=== PATIENT | male | born 1980 ===

== ENCOUNTER 2017-01-08 10:40 | Emergency (ER) | payer OTHER ==
[2017-01-08 10:40] VITALS: BMI 27.4
[2017-01-08 10:47] VITALS: BP 136/86; PULSE 87; RESP 18; TEMP 99; O2SAT 96
--- NOTE | 2017-01-08 11:04 | ED PDOC ---
HPI:Nausea, Vomiting, Diarrhea Time Seen by Provider: 01/08/17 10:57 Chief Complaint (Nursing): GI Problem History Per: Patient (Diarrhea x 2 days. Denies abd pain, vomiting or fever. Denies blood in stool. No recent travel.) Onset/Duration Of Symptoms: Days (2) Current Symptoms Are (Timing): Still Present Severity: Mild Pain Scale Rating Of: 0 Associated Symptoms: Diarrhea. denies: Fever, Nausea, Vomiting Past Medical History Vital Signs: Last Vital Signs Temp 99.0 F 01/08/17 10:46 Pulse 87 01/08/17 10:46 Resp 18 01/08/17 10:46 BP 136/86 01/08/17 10:46 Pulse Ox 96 01/08/17 10:46 - Medical History PMH: Anxiety - Family History Family History: States: Unknown Family Hx - Home Medications Home Medications: Ambulatory Orders Medication Instructions Recorded Ibuprofen [Motrin] 600 mg PO Q6H PRN #20 tab 09/25/16 Amoxicillin 875 mg PO BID #20 tab 09/26/16 Ofloxacin Otic 0.3% [Floxin 0.3% 10 drop .ROUTE DAILY #1 bottle 09/26/16 Otic Soln] Atropine/Diphenoxylate [Lonox 1 tab PO Q8 #10 tab 01/08/17 0.025 MG-2.5 MG] - Allergies Allergies/Adverse Reactions: Allergies Allergy/AdvReac Type Severity Reaction Status Date / Time No Known Allergies Allergy Verified 02/18/16 08:56 Review of Systems ROS Statement: Except As Marked, All Systems Reviewed And Found Negative Constitutional: Negative for: Fever Gastrointestinal: Positive for: Diarrhea. Negative for: Nausea, Vomiting, Abdominal Pain, Melena, Hematochezia Physical Exam - Reviewed Nursing Documentation Reviewed: Yes Vital Signs Reviewed: Yes - Physical Exam Appears: Positive for: Non-toxic, No Acute Distress Head Exam: Positive for: ATRAUMATIC, NORMAL INSPECTION, NORMOCEPHALIC Skin: Positive for: Normal Color, Warm, DRY Eye Exam: Positive for: EOMI, Normal appearance, PERRL ENT: Positive for: Normal ENT Inspection Neck: Positive for: Normal, Painless ROM Cardiovascular/Chest: Positive for: Regular Rate, Rhythm Respiratory: Positive for: CNT, Normal Breath Sounds Gastrointestinal/Abdominal: Positive for: Normal Exam, Bowel Sounds, Soft Back: Positive for: Normal Inspection Extremity: Positive for: Normal ROM Neurologic/Psych: Positive for: Alert, Oriented - Laboratory Results Result Diagrams: 01/08/17 11:45 01/08/17 11:45 - ECG O2 Sat by Pulse Oximetry: 96 Disposition - Clinical Impression Clinical Impression: Gastroenteritis - Patient ED Disposition Is Patient to be Admitted: No Counseled Patient/Family Regarding: Studies Performed, Diagnosis, Need For Followup, Rx Given - Disposition Referrals: [facility] [Outside] Disposition: Routine/Home Disposition Time: 12:59 Condition: FAIR Prescriptions: Atropine/Diphenoxylate [Lonox 0.025 MG-2.5 MG] 1 tab PO Q8 #10 tab Instructions: Gastroenteritis (ED) Print Language: UKRAINIAN
[2017-01-08] MEDS: Sodium Chloride 0.9% 1,000 ML IV STA (12:11)
[2017-01-08 12:19] LABS: BASO # 0.1 K/uL (0.0-0.2); BASO % 0.8 % (0.0-2.0); EOS # 0.1 K/uL (0.0-0.7); EOS % 0.5 % (0.0-4.0); HEMATOCRIT 50.9 % (35.0-51.0); LYMPH # 1.7 K/uL (1.0-4.3); LYMPH % 17.8 % (20.0-40.0); MEAN CELL VOLUME 91.7 fl (80.0-94.0); MEAN CORPUSCULAR HEMOGLOBIN 31.6 pg (27.0-31.0); MEAN CORPUSCULAR HGB CONC 34.5 g/dL (33.0-37.0); MEAN PLATELET VOLUME 8.1 fl (7.2-11.7); MONO # 0.7 K/uL (0.0-0.8); MONO % 7.5 % (0.0-10.0); NEUT % 73.4 % (50.0-75.0); NRBC % 0.2 % (0.0-0.0); RED CELL DISTRIBUTION WIDTH 13.1 % (11.5-14.5); WHITE BLOOD COUNT 9.5 K/uL (4.8-10.8)
[2017-01-08 12:32] LABS: ALB/GLOB RATIO 1.4 (1.0-2.1); ALKALINE PHOSPHATASE 56 U/L (38-126); ALT/SGPT 217 U/L (21-72); AST/SGOT 629 U/L (17-59); BILIRUBIN,TOTAL 1.6 mg/dl (0.2-1.3); BLOOD UREA NITROGEN 21 mg/dl (9-20); CALCIUM 10.3 mg/dL (8.4-10.2); CARBON DIOXIDE 24 mmol/L (22-30); CHLORIDE 103 mmol/L (98-107); GFR AFRICAN-AMERICAN > 60; GLUCOSE,RANDOM 95 mg/dL (75-110); SODIUM 140 mmol/l (132-148); TOTAL PROTEIN 8.8 G/DL (6.3-8.2)
[2017-01-08 12:33] LABS: POTASSIUM 5.7 MMOL/L (3.6-5.0)
== END 2017-01-08 13:39 | disposition home or self-care (01) ==
LOC: H.ER 10:40
DX: K52.9 Noninfective gastroenteritis and colitis, unspecified (principal); R19.7 Diarrhea, unspecified

== ENCOUNTER 2017-01-12 16:27 | Observation (INO) | payer OTHER, SELFPAY ==
[2017-01-12 16:27] VITALS: BMI 27.4
[2017-01-12] MEDS ORDERED: Sodium Chloride 0.9% 1,000 ML IV STA (16:54)
--- NOTE | 2017-01-12 17:25 | ED PDOC ---
HPI: Abdomen Time Seen by Provider: 01/12/17 16:51 Chief Complaint (Nursing): Abdominal Pain Chief Complaint (Provider): Abd pain History Per: Patient History/Exam Limitations: no limitations Onset/Duration Of Symptoms: Days (1 week) Additional Complaint(s): Pt. with abd pain epigastric week. Was here and got meds for it few days ago. Taking it which helps. Ran out of the meds last night. Pt. also noted red blood in stool yesterday. No lower abd pain. No weakness, headaches, dizziness , fever, chest pain, back pain, nausea, vomit, diarrhea. Had same pain in the past. Past Medical History Reviewed: Nursing Documentation, Vital Signs Vital Signs: Last Vital Signs Temp 97.8 F 01/12/17 16:38 Pulse 84 01/12/17 16:38 Resp 20 01/12/17 16:38 BP 124/65 01/12/17 16:38 Pulse Ox 98 01/12/17 17:28 - Medical History PMH: Anxiety Other PMH: gastritis - Surgical History Surgical History: No Surg Hx - Family History Family History: States: Unknown Family Hx - Social History Current smoker - smoking cessation education provided: No Alcohol: None Drugs: Denies - Home Medications Home Medications: Ambulatory Orders Medication Instructions Recorded Ibuprofen [Motrin] 600 mg PO Q6H PRN #20 tab 09/25/16 Amoxicillin 875 mg PO BID #20 tab 09/26/16 Ofloxacin Otic 0.3% [Floxin 0.3% 10 drop .ROUTE DAILY #1 bottle 09/26/16 Otic Soln] Atropine/Diphenoxylate [Lonox 1 tab PO Q8 #10 tab 01/08/17 0.025 MG-2.5 MG] - Allergies Allergies/Adverse Reactions: Allergies Allergy/AdvReac Type Severity Reaction Status Date / Time No Known Allergies Allergy Verified 02/18/16 08:56 Review of Systems ROS Statement: Except As Marked, All Systems Reviewed And Found Negative Gastrointestinal: Positive for: Abdominal Pain, Hematochezia Physical Exam - Reviewed Nursing Documentation Reviewed: Yes Vital Signs Reviewed: Yes - Physical Exam Appears: Positive for: Non-toxic, No Acute Distress Head Exam: Positive for: ATRAUMATIC, NORMAL INSPECTION, NORMOCEPHALIC Skin: Positive for: Normal Color, Warm, DRY Eye Exam: Positive for: EOMI, Normal appearance, PERRL ENT: Positive for: Normal ENT Inspection Neck: Positive for: Normal, Painless ROM Cardiovascular/Chest: Positive for: Regular Rate, Rhythm Respiratory: Positive for: CNT, Normal Breath Sounds Gastrointestinal/Abdominal: Positive for: Bowel Sounds, Soft, Tenderness ( epigastric) Back: Positive for: Normal Inspection. Negative for: L CVA Tenderness, R CVA Tenderness Rectal: Positive for: Rectal Tone Is: (intact), Other (stool brown) Extremity: Positive for: Normal ROM. Negative for: Tenderness, Pedal Edema Neurologic/Psych: Positive for: Alert, Oriented - Laboratory Results Result Diagrams: 01/12/17 17:31 01/12/17 17:31 Interpretation Of Abn Labs: bun 28 - ECG O2 Sat by Pulse Oximetry: 98 Pulse Ox Interpretation: Normal - CT Scan/US ct Other Rad Studies (CT/US): Read By Radiologist Other Rad Interpretation: no acute - Progress ED Course And Treament: 954: Stable. AAOx3. Pain free. Spoke with GI fellow for Dr. Dave. Wants pt. to be obs and no further meds at this time. No protonix IV. Will monitor. BUN has been increasing. Spoke with Dr. Levine. Will obs. ED OBSERVATION Date of observation admission: 01/12/17 Time of observation admission: 17:28 - Observation admission statement Patient is being placed in observation because:: abd pain - Goals of Observation Goals of observation are:: eval for pain Disposition - Clinical Impression Clinical Impression: GI bleed - Patient ED Disposition Is Patient to be Admitted: Yes Counseled Patient/Family Regarding: Studies Performed, Diagnosis - Disposition Disposition Time: 22:02 Condition: FAIR - Pt Status Changed To: Hospital Disposition Of: Observation - POA Present On Arrival: None
[2017-01-12] MEDS ORDERED: Iohexol 240 (50 ml) PO ONE (17:27)
[2017-01-12] MEDS ORDERED: Iohexol 240 (50 ml) ONE (17:29)
[2017-01-12 17:40] LABS: BASO # 0.1 K/uL (0.0-0.2); BASO % 0.9 % (0.0-2.0); EOS # 0.1 K/uL (0.0-0.7); EOS % 0.6 % (0.0-4.0); HEMATOCRIT 46.6 % (35.0-51.0); LYMPH # 2.1 K/uL (1.0-4.3); LYMPH % 20.7 % (20.0-40.0); MEAN CELL VOLUME 92.2 fl (80.0-94.0); MEAN CORPUSCULAR HEMOGLOBIN 31.5 pg (27.0-31.0); MEAN CORPUSCULAR HGB CONC 34.1 g/dL (33.0-37.0); MEAN PLATELET VOLUME 7.2 fl (7.2-11.7); MONO # 0.6 K/uL (0.0-0.8); NEUT # 7.3 K/uL (1.8-7.0); NEUT % 71.8 % (50.0-75.0); NRBC % 0.1 % (0.0-0.0); RED CELL DISTRIBUTION WIDTH 12.7 % (11.5-14.5); WHITE BLOOD COUNT 10.2 K/uL (4.8-10.8)
[2017-01-12 17:50] LABS: ALB/GLOB RATIO 1.4 (1.0-2.1); ALKALINE PHOSPHATASE 62 U/L (38-126); ALT/SGPT 124 U/L (21-72); AST/SGOT 59 U/L (17-59); BILIRUBIN,TOTAL 0.7 mg/dl (0.2-1.3); BLOOD UREA NITROGEN 28 mg/dl (9-20); CALCIUM 9.3 mg/dL (8.4-10.2); CARBON DIOXIDE 24 mmol/L (22-30); CHLORIDE 105 mmol/L (98-107); GFR AFRICAN-AMERICAN > 60; GLUCOSE,RANDOM 114 mg/dL (75-110); LIPASE 85 U/L (23-300); SODIUM 142 mmol/l (132-148); TOTAL PROTEIN 8.1 G/DL (6.3-8.2)
[2017-01-12 17:52] LABS: POTASSIUM 4.5 MMOL/L (3.6-5.0)
[2017-01-12 18:21] LABS: PARTIAL THROMBOPLASTIN TIME 33.2 Seconds (25.6-37.1)
[2017-01-12] MEDS ORDERED: Sodium Chloride 0.9% 50 ML IV ONE (20:23)
[2017-01-12] MEDS ORDERED: Iohexol 300 100 ML IJ ONE (20:23)
--- NOTE | 2017-01-12 21:20 | CT ---
EXAM: CT Abdomen and Pelvis With Intravenous Contrast CLINICAL HISTORY: 36 years old, male; Pain; Abdominal pain; Generalized; Additional info: Abd pain TECHNIQUE: Axial computed tomography images of the abdomen and pelvis with intravenous contrast. This CT exam was performed using one or more of the following dose reduction techniques: automated exposure control, adjustment of the mA and/or kV according to patient size, and/or use of iterative reconstruction technique. Coronal and sagittal reformatted images were created and reviewed. CONTRAST: 95 mL of [id number] administered intravenously. EXAM DATE/TIME: 01/12/2017 5:27 PM COMPARISON: There are no prior studies for comparison. FINDINGS: Lower thorax: Heart size is normal. There is atelectasis at the lung bases ABDOMEN: Liver: There is fatty infiltration of the liver. Gallbladder and bile ducts: unremarkable Pancreas: unremarkable Spleen: unremarkable Adrenals: unremarkable Kidneys and ureters: unremarkable Stomach and bowel: Stomach is incompletely distended. Rotation is normal. There is no small bowel obstruction. Streak and motion limited evaluation of the right lower quadrant. Appendix is unremarkable. Terminal ileum is unremarkable.There are no focal colonic abnormalities. Appendix: See stomach and bowel PELVIS: Bladder: unremarkable Reproductive: Seminal vesicles and prostate are unremarkable. ABDOMEN and PELVIS: Intraperitoneal space: There is no free air or free fluid. Bones/joints: There is minimal degenerative change in the bony structures. Soft tissues: unremarkable Vasculature: Vascular structures are unremarkable. Lymph nodes: unremarkable IMPRESSION: No acute solid visceral or bowel abnormality
--- NOTE | 2017-01-12 22:11 | CP.PCM.HP ---
History of Present Illness - History of Present Illness History of Present Illness: PCP: Jatin Cabrera MD. not on staff Chief complaint: Epigastric Abdominal pain/Red blood per. HPI: 36 years old male with hx of Hemorrhoides and and lower GI bleed, was here at the ED 3 weeks prior diagnosed with abdominal pain and lower GI bleed, and 3 days ago gastroenteritis. He comes now with complaints of red blood in stool for 2-3 days and intermittent non radiating Epigastric pains aggravated by eating. No nausea, vomits nor diarrhea at present, no lower abdominal nor rectal pains. no fever, chills but has hz of alcohol ingestion socially. PMH: Lower GI bleed 01/2016; Perianal abscess; Hemorrhoides; Anxiety; Gastritis PSH: Removal of Seb[place] cyst from face SH: Lives alone, Works in a [employer]; Never smoked; no illegal drug use; alcohol Socially FH: No known family hx Allergies: NKDA Medication: Ambien 10mg HS; Xanzx 0.5mg BID; Lomotil BID Present on Admission - Present on Admission Any Indicators Present on Admission: No History of DVT/PE: No History of Uncontrolled Diabetes: No Urinary Catheter: No Decubitus Ulcer Present: No Review of Systems - Constitutional Constitutional: absent: Anorexia, Chills, Fatigue, Fever - EENT Eyes: absent: Diplopia, Floaters, Photophobia, Requires Corrective Lenses Ears: absent: Decreased Hearing, Ear Pain, Tinnitus Nose/Mouth/Throat: absent: Epistaxis, Nasal Congestion, Nasal Discharge, Dental Pain, Dry Mouth - Cardiovascular Cardiovascular: absent: Chest Pain, Dyspnea, Edema - Respiratory Respiratory: absent: Cough, Wheezing, Stridor, Chest Congestion - Gastrointestinal Gastrointestinal: Abdominal Pain, Hematochezia. absent: Constipation, Diarrhea , Nausea, Vomiting - Genitourinary Genitourinary: absent: Dysuria, Flank Pain, Hematuria, Urinary Frequency - Musculoskeletal Musculoskeletal: absent: Arthralgias, Back Pain, Myalgias - Integumentary Integumentary: absent: Pruritus, Rash, Skin Ulcer, Sores, Striae, Swelling - Neurological Neurological: absent: Confusion, Focal Weakness, Headaches, Vertigo - Psychiatric Psychiatric: Anxiety. absent: Depression, Panic Attacks - Endocrine Endocrine: absent: Palpitations, Polydipsia, Polyphagia, Polyuria - Hematologic/Lymphatic Hematologic: absent: Easy Bleeding, Easy Bruising Past Patient History - Past Medical History & Family History Past Medical History?: Yes - Past Social History Smoking Status: Never Smoked Chewing Tobacco Use: No Cigar Use: No Alcohol: Social Drugs: Denies Home Situation {Lives}: Alone - CARDIAC Hx Cardiac Disorders: No - PULMONARY Hx Respiratory Disorders: No - NEUROLOGICAL Hx Neurological Disorder: No - HEENT Hx HEENT Problems: No - RENAL Hx Chronic Kidney Disease: No - ENDOCRINE/METABOLIC Hx Endocrine Disorders: No - HEMATOLOGICAL/ONCOLOGICAL Hx Blood Disorders: No - INTEGUMENTARY Hx Dermatological Problems: No - MUSCULOSKELETAL/RHEUMATOLOGICAL Hx Musculoskeletal Disorders: No - GASTROINTESTINAL Hx Gastritis: Yes Hx Hemorrhoids: Yes Other/Comment: Lower GI bleed - GENITOURINARY/GYNECOLOGICAL Hx Genitourinary Disorders: No - PSYCHIATRIC Hx Anxiety: Yes - SURGICAL HISTORY Hx Surgeries: No - ANESTHESIA Hx Anesthesia: No Meds Allergies/Adverse Reactions: Allergies Allergy/AdvReac Type Severity Reaction Status Date / Time No Known Allergies Allergy Verified 01/12/17 22:51 Physical Exam - Constitutional Appears: No Acute Distress - Head Exam Head Exam: ATRAUMATIC, NORMAL INSPECTION, NORMOCEPHALIC - Eye Exam Eye Exam: EOMI, Normal appearance Pupil Exam: NORMAL ACCOMODATION, PERRL - ENT Exam ENT Exam: Mucous Membranes Moist, Normal Exam, Normal External Ear Exam, Normal Oropharynx - Neck Exam Neck exam: Positive for: Full Rom, Normal Inspection. Negative for: Lymphadenopathy, Tenderness - Respiratory Exam Respiratory Exam: Clear to Auscultation Bilateral. absent: Rales, Rhonchi, Wheezes - Cardiovascular Exam Cardiovascular Exam: REGULAR RHYTHM, RRR, +S1, +S2. absent: Gallop, JVD - GI/Abdominal Exam Additional comments: Soft Full +ve bowel sounds. no epigastric Pain at present - Rectal Exam Rectal Exam: Deferred - Extremities Exam Extremities exam: Positive for: full ROM, normal inspection. Negative for: joint swelling, pedal edema, tenderness - Back Exam Back exam: NORMAL INSPECTION. absent: CVA tenderness (L), CVA tenderness (R) - Neurological Exam Neurological exam: Alert, CN II-XII Intact, Oriented x3, Reflexes Normal - Psychiatric Exam Psychiatric exam: Normal Affect, Normal Mood - Skin Skin Exam: Dry, Intact, Normal Color, Warm Results - Vital Signs Recent Vital Signs: Last Vital Signs Temp 97.8 F 01/12/17 16:38 Pulse 84 01/12/17 16:38 Resp 20 01/12/17 16:38 BP 124/65 01/12/17 16:38 Pulse Ox 98 01/12/17 22:02 - Labs Result Diagrams: 01/12/17 17:31 01/12/17 17:31 Labs: Laboratory Results - last 24 hr 01/12/17 01/12/17 01/12/17 17:31 17:31 17:31 WBC 10.2 RBC 5.06 Hgb 15.9 Hct 46.6 MCV 92.2 MCH 31.5 H MCHC 34.1 RDW 12.7 Plt Count 346 MPV 7.2 Neut % (Auto) 71.8 Lymph % (Auto) 20.7 [place] % (Auto) 6.0 Eos % (Auto) 0.6 Baso % (Auto) 0.9 Neut # 7.3 H Lymph # 2.1 [place] # 0.6 Eos # 0.1 Baso # 0.1 PT 12.1 INR 1.1 APTT 33.2 Sodium 142 Potassium 4.5 Chloride 105 Carbon Dioxide 24 Anion Gap 18 BUN 28 H Creatinine 1.0 Est GFR ( Amer) > 60 Est GFR (Non-Af Amer) > 60 Random Glucose 114 H Calcium 9.3 Total Bilirubin 0.7 AST 59 D ALT 124 H D Alkaline Phosphatase 62 Total Protein 8.1 Albumin 4.6 Globulin 3.4 Albumin/Globulin Ratio 1.4 Lipase 85 - Imaging and Cardiology CT scan - abdomen Status: Report reviewed by me Additional comment: FINDINGS: Lower thorax: Heart size is normal. There is atelectasis at the lung bases ABDOMEN: Liver: There is fatty infiltration of the liver. Gallbladder and bile ducts: unremarkable Pancreas: unremarkable Spleen: unremarkable Adrenals: unremarkable Kidneys and ureters: unremarkable Stomach and bowel: Stomach is incompletely distended. Rotation is normal. There is no small bowel obstruction. Streak and motion limited evaluation of the right lower quadrant. Appendix is unremarkable. Terminal ileum is unremarkable.There are no focal colonic abnormalities. Appendix: See stomach and bowel PELVIS: Bladder: unremarkable Reproductive: Seminal vesicles and prostate are unremarkable. ABDOMEN and PELVIS: Intraperitoneal space: There is no free air or free fluid. Bones/joints: There is minimal degenerative change in the bony structures. Soft tissues: unremarkable Vasculature: Vascular structures are unremarkable. Lymph nodes: unremarkable IMPRESSION: No acute solid visceral or bowel abnormality Assessment & Plan - Assessment and Plan (Free Text) Assessment: #. Lower GI bleed #. Gastritis #. Dehydration #. Anxiety Plan: 36 years old male with hx of Hemorrhoides and and lower GI bleed, last time was 3 weeks prior, and 3 days ago in This ED with diarrhea. He comes now with complaints of red blood in stool for 2-3 days and intermittent non radiating Epigastric pains aggravated by eating. #. Lower GI bleed with no acute changes on CT. Probably Hemorrhoidal bleed - Consult GI Dr Magallanes - Clear liquid diet - Anusol #. Gastritis Acute on chronic - Pepcid Q12 - GI on Consult #. Dehydration - IV Fluids NS 140 - Follow Renal labs #. Anxiety - Xanax #. DVT prophyxax #. Code Status: Full - Date & Time Date: 01/12/17 Time: 22:11
[2017-01-12] MEDS ORDERED: Anusol Suppository PR PRN (22:50)
[2017-01-12] MEDS: Sodium Chloride 0.9% 1,000 ML IV SCH (23:23)
[2017-01-13 01:26] VITALS: RESP 18
[2017-01-13] MEDS: Sodium Chloride 0.9% 1,000 ML IV SCH ×2 (06:11→12:15)
[2017-01-13 06:12] LABS: HEMATOCRIT 43.1 % (35.0-51.0); MEAN CORPUSCULAR HEMOGLOBIN 31.5 pg (27.0-31.0); MEAN CORPUSCULAR HGB CONC 33.9 g/dL (33.0-37.0); WHITE BLOOD COUNT 7.7 K/uL (4.8-10.8)
[2017-01-13 06:48] LABS: BLOOD UREA NITROGEN 18 mg/dl (9-20); CALCIUM 8.4 mg/dL (8.4-10.2); CARBON DIOXIDE 26 mmol/L (22-30); CHLORIDE 106 mmol/L (98-107); GFR AFRICAN-AMERICAN > 60; GLUCOSE,RANDOM 86 mg/dL (75-110); POTASSIUM 3.8 MMOL/L (3.6-5.0); SODIUM 140 mmol/l (132-148)
[2017-01-13] MEDS ORDERED: Pneumococcal 23-Valent Vaccine IM ONE (07:34)
--- NOTE | 2017-01-13 12:09 | CP.PCM.PN ---
<Hannah Garcia - Last Filed: 01/13/17 12:28> Subjective - Date & Time of Evaluation Date of Evaluation: 01/13/17 Time of Evaluation: 10:15 - Subjective Subjective: 36 YO M seen resting comfortably in bed denies any over night events. States he slept well throughout the night. He states his abdominal pain has decreased but is still occuring, currently rates it at a 3-4/10, burning in nature in the upper epigastric region. He has had a bowl movement today which was normal in consistency and contained less blood then his previous bowl movements. Has been tolerating clear liquids fine. Patient states that juices or liquids with high sugar content give him a headache. Denies any Nausea, Vomiting, blurring of vision, dizziness, fever, or chills. Objective - Vital Signs/Intake and Output Vital Signs (last 24 hours): Temp Pulse Resp BP Pulse Ox 97.9 F 61 18 115/71 99 01/13/17 07:39 01/13/17 07:39 01/13/17 07:39 01/13/17 07:39 01/13/17 07:39 - Medications Medications: Current Medications Alprazolam (Xanax) 0.5 mg PO Q12 PRN PRN Reason: Anxiety Stop: 01/19/17 22:43 Famotidine (Pepcid) 20 mg IVP Q12 [facility] Last Admin: 01/13/17 08:35 Dose: 20 mg Sodium Chloride (Sodium Chloride 0.9%) 1,000 mls @ 150 mls/hr IV .Q6H40M [facility] Stop: 01/13/17 22:40 Last Admin: 01/13/17 06:11 Dose: 150 mls/hr Zolpidem Tartrate (Ambien) 5 mg PO HS PRN PRN Reason: Sleep Last Admin: 01/13/17 00:10 Dose: 5 mg - Labs Labs: 01/13/17 05:30 01/13/17 05:30 PT 12.1 Seconds (9.8-13.1) 01/12/17 17:31 INR 1.1 (0.9-1.2) 01/12/17 17:31 APTT 33.2 Seconds (25.6-37.1) 01/12/17 17:31 - Constitutional Appears: No Acute Distress - Head Exam Head Exam: NORMAL INSPECTION - Eye Exam Eye Exam: Normal appearance Pupil Exam: NORMAL ACCOMODATION - ENT Exam ENT Exam: Mucous Membranes Moist - Respiratory Exam Respiratory Exam: Clear to Ausculation Bilateral, NORMAL BREATHING PATTERN. absent: Wheezes - Cardiovascular Exam Cardiovascular Exam: REGULAR RHYTHM, +S1, +S2 - GI/Abdominal Exam GI & Abdominal Exam: Soft, Normal Bowel Sounds. absent: Tenderness - Extremities Exam Extremities Exam: Normal Inspection. absent: Calf Tenderness - Neurological Exam Neurological Exam: Alert, Awake, CN II-XII Intact, Oriented x3 - Psychiatric Exam Psychiatric exam: Normal Affect, Normal Mood - Skin Skin Exam: Normal Color, Warm Assessment and Plan - Assessment and Plan (Free Text) Assessment: 36 years old male with hx of Hemorrhoides and and lower GI bleed, last time was 3 weeks prior in [facility] ED with diarrhea. He comes now with complaints of red blood in stool for 2-3 days and intermittent non radiating Epigastric pains aggravated by eating. 1) Lower GI bleed with no acute changes on CT. Probably Hemorrhoidal bleed - Consult GI Dr Magallanes - Clear liquid diet - Anusol 2) Gastritis Acute on chronic - Pepcid Q12 - GI on Consult 3) Dehydration - IV Fluids NS 140 - BUN:18 Creatinine:.7 , BUN/Creatinine ratio: 25.7 4) Anxiety - Xanax 5) DVT prophylaxis - SCD #. Code Status: Full <Carmen Arroyo - Last Filed: 01/13/17 19:05> Objective - Vital Signs/Intake and Output Vital Signs (last 24 hours): Temp Pulse Resp BP Pulse Ox 98.8 F 70 18 127/79 98 01/13/17 16:23 01/13/17 16:23 01/13/17 16:23 01/13/17 16:23 01/13/17 16:23 - Labs Labs: 01/13/17 05:30 01/13/17 05:30 PT 12.1 Seconds (9.8-13.1) 01/12/17 17:31 INR 1.1 (0.9-1.2) 01/12/17 17:31 APTT 33.2 Seconds (25.6-37.1) 01/12/17 17:31 Attending/Attestation - Attestation I have personally seen and examined this patient.: Yes I have fully participated in the care of the patient.: Yes I have reviewed all pertinent clinical information, including history, physical exam and plan: Yes Notes (Text): 01/13/17 19:05 AGREE [facility] FINDINGS AND PLAN ABOVE. SEEN AND REVIEWED PLAN WITH RESIDENT DR. HANNAH GARCIA.
--- NOTE | 2017-01-13 16:14 | CP.PCM.CON ---
History of Present Illness - History of Present Illness History of Present Illness: GI consult requested by hospitalist- This is a 36 years old male with hx of anxiety,hemorrhoides and gastritis with EGd done 12 years ago admitted with abdominal pain ongoing for 3 days, mostlty epigastric pain and blood mixed with stool. Denies alcohol abuse. Denies history of ulcer. Denies having colonoscopy before. Denies nausea, vomiting and hematemesis or weight loss, diarrhea or constipation. Review of Systems - Review of Systems Review of Systems: 12 point ROS as documented in HPI Past Patient History - Past Medical History & Family History Past Medical History?: Yes - Past Social History Smoking Status: Former Smoker - CARDIAC Hx Cardiac Disorders: No - PULMONARY Hx Respiratory Disorders: No - NEUROLOGICAL Hx Neurological Disorder: No - HEENT Hx HEENT Problems: Yes Other/Comment: Sensitive right ear as per patient. - RENAL Hx Chronic Kidney Disease: No - ENDOCRINE/METABOLIC Hx Endocrine Disorders: No - HEMATOLOGICAL/ONCOLOGICAL Hx Blood Disorders: No - INTEGUMENTARY Hx Dermatological Problems: No - MUSCULOSKELETAL/RHEUMATOLOGICAL Hx Musculoskeletal Disorders: No Hx Falls: No - GASTROINTESTINAL Hx Gastrointestinal Disorders: Yes Hx Gastritis: Yes Hx Hemorrhoids: Yes Other/Comment: Lower GI bleed - GENITOURINARY/GYNECOLOGICAL Hx Genitourinary Disorders: No - PSYCHIATRIC Hx Psychophysiologic Disorder: Yes Hx Anxiety: Yes Hx Substance Use: No - SURGICAL HISTORY Hx Surgeries: No - ANESTHESIA Hx Anesthesia: No Meds Allergies/Adverse Reactions: Allergies Allergy/AdvReac Type Severity Reaction Status Date / Time No Known Allergies Allergy Verified 01/12/17 22:51 - Medications Medications: Current Medications Acetaminophen (Tylenol 325mg Tab) 650 mg PO Q6 PRN PRN Reason: Headache Alprazolam (Xanax) 0.5 mg PO Q12 PRN PRN Reason: Anxiety Stop: 01/19/17 22:43 Famotidine (Pepcid) 20 mg IVP Q12 STEPHEN Last Admin: 01/13/17 08:35 Dose: 20 mg Sodium Chloride (Sodium Chloride 0.9%) 1,000 mls @ 150 mls/hr IV .Q6H40M STEPHEN Stop: 01/13/17 22:40 Last Admin: 01/13/17 12:15 Dose: Not Given Zolpidem Tartrate (Ambien) 5 mg PO HS PRN PRN Reason: Sleep Last Admin: 01/13/17 00:10 Dose: 5 mg Physical Exam - Constitutional Appears: Well - Head Exam Head Exam: ATRAUMATIC, NORMAL INSPECTION, NORMOCEPHALIC - Eye Exam Eye Exam: EOMI, Normal appearance, PERRL - ENT Exam ENT Exam: Mucous Membranes Moist, Normal Exam - Respiratory Exam Respiratory Exam: Clear to Auscultation Bilateral, NORMAL BREATHING PATTERN - Cardiovascular Exam Cardiovascular Exam: REGULAR RHYTHM, RRR, +S1, +S2 - GI/Abdominal Exam GI & Abdominal Exam: Normal Bowel Sounds, Soft. absent: Tenderness - Extremities Exam Extremities exam: Positive for: normal inspection - Neurological Exam Neurological exam: Alert, CN II-XII Intact, Normal Gait, Oriented x3, Reflexes Normal - Psychiatric Exam Psychiatric exam: Normal Affect, Normal Mood - Skin Skin Exam: Dry, Intact, Normal Color, Warm Results - Vital Signs Recent Vital Signs: Last Vital Signs Temp 97.9 F 01/13/17 07:39 Pulse 61 01/13/17 07:39 Resp 18 01/13/17 07:39 BP 115/71 01/13/17 07:39 Pulse Ox 99 01/13/17 07:39 - Labs Result Diagrams: 01/13/17 05:30 01/13/17 05:30 Labs: Laboratory Results - last 24 hr 01/12/17 01/12/17 01/12/17 17:31 17:31 17:31 WBC 10.2 RBC 5.06 Hgb 15.9 Hct 46.6 MCV 92.2 MCH 31.5 H MCHC 34.1 RDW 12.7 Plt Count 346 MPV 7.2 Neut % (Auto) 71.8 Lymph % (Auto) 20.7 Gooding % (Auto) 6.0 Eos % (Auto) 0.6 Baso % (Auto) 0.9 Neut # 7.3 H Lymph # 2.1 Gooding # 0.6 Eos # 0.1 Baso # 0.1 PT 12.1 INR 1.1 APTT 33.2 Sodium 142 Potassium 4.5 Chloride 105 Carbon Dioxide 24 Anion Gap 18 BUN 28 H Creatinine 1.0 Est GFR ( Amer) > 60 Est GFR (Non-Af Amer) > 60 Random Glucose 114 H Calcium 9.3 Total Bilirubin 0.7 AST 59 D ALT 124 H D Alkaline Phosphatase 62 Total Protein 8.1 Albumin 4.6 Globulin 3.4 Albumin/Globulin Ratio 1.4 Lipase 85 01/13/17 01/13/17 05:30 05:30 WBC 7.7 RBC 4.63 Hgb 14.6 Hct 43.1 MCV 93.0 MCH 31.5 H MCHC 33.9 RDW 13.0 Plt Count 306 MPV Neut % (Auto) Lymph % (Auto) Gooding % (Auto) Eos % (Auto) Baso % (Auto) Neut # Lymph # Gooding # Eos # Baso # PT INR APTT Sodium 140 Potassium 3.8 Chloride 106 Carbon Dioxide 26 Anion Gap 12 BUN 18 Creatinine 0.7 L Est GFR ( Amer) > 60 Est GFR (Non-Af Amer) > 60 Random Glucose 86 Calcium 8.4 Total Bilirubin AST ALT Alkaline Phosphatase Total Protein Albumin Globulin Albumin/Globulin Ratio Lipase Assessment & Plan - Assessment and Plan (Free Text) Assessment: 36 yr old [place] male with epigastric pain and rectal bleeding now resolved. Rectal exam with brown stool and no blood in rectal vault. Hb 14.7 and stable Hct. Likely gastritis - prudent to rule out PUD. Will do EGD/ colonoscopy as outpatient Plan: - Regular diet as tolerated - No s/s of overt GI bleeding - Outpatient EGD/ colonoscopy - Make appointment with me in [facility] in 2 weeks - PPI daily in am - Avoid NSAID' s - EGD 12 years ago with gastritis- no H pylori - Can be discharged to home
[2017-01-13 16:23] VITALS: BP 127/79; PULSE 70; TEMP 98.8; O2SAT 98
--- NOTE | 2017-01-13 17:00 | CP.PCM.DIS ---
<Hannah Garcia - Last Filed: 01/13/17 17:22> Provider - Provider Date of Admission: 01/12/17 17:28 Attending physician: Otoniel Levine Time Spent in preparation of Discharge (in minutes): 30 Diagnosis - Discharge Diagnosis (1) Gastritis Status: Chronic (2) GI bleed Status: Acute (3) Hemorrhoid Status: Chronic Hospital Course - Lab Results Lab Results: Most Recent Lab Values WBC 7.7 K/uL (4.8-10.8) 01/13/17 05:30 RBC 4.63 Mil/uL (4.40-5.90) 01/13/17 05:30 Hgb 14.6 g/dL (12.0-18.0) 01/13/17 05:30 Hct 43.1 % (35.0-51.0) 01/13/17 05:30 MCV 93.0 fl (80.0-94.0) 01/13/17 05:30 MCH 31.5 pg (27.0-31.0) H 01/13/17 05:30 MCHC 33.9 g/dL (33.0-37.0) 01/13/17 05:30 RDW 13.0 % (11.5-14.5) 01/13/17 05:30 Plt Count 306 K/uL (130-400) 01/13/17 05:30 MPV 7.2 fl (7.2-11.7) 01/12/17 17:31 Neut % (Auto) 71.8 % (50.0-75.0) 01/12/17 17:31 Lymph % (Auto) 20.7 % (20.0-40.0) 01/12/17 17:31 Ashley % (Auto) 6.0 % (0.0-10.0) 01/12/17 17:31 Eos % (Auto) 0.6 % (0.0-4.0) 01/12/17 17:31 Baso % (Auto) 0.9 % (0.0-2.0) 01/12/17 17:31 Neut # 7.3 K/uL (1.8-7.0) H 01/12/17 17:31 Lymph # 2.1 K/uL (1.0-4.3) 01/12/17 17:31 Ashley # 0.6 K/uL (0.0-0.8) 01/12/17 17:31 Eos # 0.1 K/uL (0.0-0.7) 01/12/17 17:31 Baso # 0.1 K/uL (0.0-0.2) 01/12/17 17:31 PT 12.1 Seconds (9.8-13.1) 01/12/17 17:31 INR 1.1 (0.9-1.2) 01/12/17 17:31 APTT 33.2 Seconds (25.6-37.1) 01/12/17 17:31 Sodium 140 mmol/l (132-148) 01/13/17 05:30 Potassium 3.8 MMOL/L (3.6-5.0) 01/13/17 05:30 Chloride 106 mmol/L (98-107) 01/13/17 05:30 Carbon Dioxide 26 mmol/L (22-30) 01/13/17 05:30 Anion Gap 12 (10-20) 01/13/17 05:30 BUN 18 mg/dl (9-20) 01/13/17 05:30 Creatinine 0.7 mg/dL (0.8-1.5) L 01/13/17 05:30 Est GFR ( Amer) > 60 01/13/17 05:30 Est GFR (Non-Af Amer) > 60 01/13/17 05:30 Random Glucose 86 mg/dL (75-110) 01/13/17 05:30 Calcium 8.4 mg/dL (8.4-10.2) 01/13/17 05:30 Total Bilirubin 0.7 mg/dl (0.2-1.3) 01/12/17 17:31 AST 59 U/L (17-59) D 01/12/17 17:31 ALT 124 U/L (21-72) H D 01/12/17 17:31 Alkaline Phosphatase 62 U/L (38-126) 01/12/17 17:31 Total Protein 8.1 G/DL (6.3-8.2) 01/12/17 17:31 Albumin 4.6 g/dL (3.5-5.0) 01/12/17 17:31 Globulin 3.4 gm/dL (2.2-3.9) 01/12/17 17:31 Albumin/Globulin Ratio 1.4 (1.0-2.1) 01/12/17 17:31 Lipase 85 U/L (23-300) 01/12/17 17:31 Stool Occult Blood Positive (NEGATIVE) H 01/12/17 17:22 - Hospital Course Hospital Course: 36 YO M w/ h/o anxiety, hemorrhoids and gastritis w/ EGD done 12 years ago is admitted for abdominal pain for 3 days and blood mixed with stool. During his hospital stay he was put on pepsid and FOBT was noted to be positive. Hemoglobin has been stable at 14.6 and patient remained hemodynamicaly stable. He was seen by Dr. Dave (GI): He has been recommended to follow up outpatient for a EGD/Colonoscopy. Has been put on PPI to take daily. ER precautions have been given to the patient. If symptoms worsen please return to the ER. Follow up with PMD in 2-3 days. Discharge Exam - Head Exam Head Exam: ATRAUMATIC, NORMAL INSPECTION, NORMOCEPHALIC - Eye Exam Eye Exam: Normal appearance - ENT Exam ENT Exam: Mucous Membranes Moist - Respiratory Exam Respiratory Exam: Clear to PA & Lateral, NORMAL BREATHING PATTERN - Cardiovascular Exam Cardiovascular Exam: REGULAR RHYTHM, +S1, +S2 - GI/Abdominal Exam GI & Abdominal Exam: Normal Bowel Sounds, Soft. absent: Guarding - Neurological Exam Neurological exam: Alert, CN II-XII Intact, Oriented x3 Discharge Plan - Discharge Medications Prescriptions: Omeprazole 20 mg PO DAILY #30 capsule.dr - Follow Up Plan Condition: GOOD Disposition: HOME/ ROUTINE Instructions: Peptic Ulcer (GEN), Diet for Ulcers and Gastritis (GEN), Sitz Bath (GEN) Additional Instructions: - Avoid NSAIDS - Make appointment with Dr. Haley Dave on outpatient. Get outpatient EGD/ Colonoscopy. CALL GI Clinic in 2 weeks to make an appointment - Avoid NSAID, spicy foods, alcohol - Take PPI daily. - Sitz bath: Do 3-4 times a day with warm water - If bleeding increases in stool, or patient has symptoms of dizziness, lightheadedness, palpatations, please return to the ER. - Follow up w/ PMD in 2-3 days if symptoms worsen please return to the ER Referrals: Jolie LUA,MD Haley [Medical Doctor] - <Carmen Arroyo - Last Filed: 01/13/17 19:04> Provider - Provider Date of Admission: 01/12/17 17:28 Attending physician: Otoniel Levine [facility] - Lab Results Lab Results: Most Recent Lab Values WBC 7.7 K/uL (4.8-10.8) 01/13/17 05:30 RBC 4.63 Mil/uL (4.40-5.90) 01/13/17 05:30 Hgb 14.6 g/dL (12.0-18.0) 01/13/17 05:30 Hct 43.1 % (35.0-51.0) 01/13/17 05:30 MCV 93.0 fl (80.0-94.0) 01/13/17 05:30 MCH 31.5 pg (27.0-31.0) H 01/13/17 05:30 MCHC 33.9 g/dL (33.0-37.0) 01/13/17 05:30 RDW 13.0 % (11.5-14.5) 01/13/17 05:30 Plt Count 306 K/uL (130-400) 01/13/17 05:30 MPV 7.2 fl (7.2-11.7) 01/12/17 17:31 Neut % (Auto) 71.8 % (50.0-75.0) 01/12/17 17:31 Lymph % (Auto) 20.7 % (20.0-40.0) 01/12/17 17:31 Ashley % (Auto) 6.0 % (0.0-10.0) 01/12/17 17:31 Eos % (Auto) 0.6 % (0.0-4.0) 01/12/17 17:31 Baso % (Auto) 0.9 % (0.0-2.0) 01/12/17 17:31 Neut # 7.3 K/uL (1.8-7.0) H 01/12/17 17:31 Lymph # 2.1 K/uL (1.0-4.3) 01/12/17 17:31 Ashley # 0.6 K/uL (0.0-0.8) 01/12/17 17:31 Eos # 0.1 K/uL (0.0-0.7) 01/12/17 17:31 Baso # 0.1 K/uL (0.0-0.2) 01/12/17 17:31 PT 12.1 Seconds (9.8-13.1) 01/12/17 17:31 INR 1.1 (0.9-1.2) 01/12/17 17:31 APTT 33.2 Seconds (25.6-37.1) 01/12/17 17:31 Sodium 140 mmol/l (132-148) 01/13/17 05:30 Potassium 3.8 MMOL/L (3.6-5.0) 01/13/17 05:30 Chloride 106 mmol/L (98-107) 01/13/17 05:30 Carbon Dioxide 26 mmol/L (22-30) 01/13/17 05:30 Anion Gap 12 (10-20) 01/13/17 05:30 BUN 18 mg/dl (9-20) 01/13/17 05:30 Creatinine 0.7 mg/dL (0.8-1.5) L 01/13/17 05:30 Est GFR ( Amer) > 60 01/13/17 05:30 Est GFR (Non-Af Amer) > 60 01/13/17 05:30 Random Glucose 86 mg/dL (75-110) 01/13/17 05:30 Calcium 8.4 mg/dL (8.4-10.2) 01/13/17 05:30 Total Bilirubin 0.7 mg/dl (0.2-1.3) 01/12/17 17:31 AST 59 U/L (17-59) D 01/12/17 17:31 ALT 124 U/L (21-72) H D 01/12/17 17:31 Alkaline Phosphatase 62 U/L (38-126) 01/12/17 17:31 Total Protein 8.1 G/DL (6.3-8.2) 01/12/17 17:31 Albumin 4.6 g/dL (3.5-5.0) 01/12/17 17:31 Globulin 3.4 gm/dL (2.2-3.9) 01/12/17 17:31 Albumin/Globulin Ratio 1.4 (1.0-2.1) 01/12/17 17:31 Lipase 85 U/L (23-300) 01/12/17 17:31 Stool Occult Blood Positive (NEGATIVE) H 01/12/17 17:22 - Hospital Course Hospital Course: BLEED LIKELY 2/2 HEMORRHOIDS. NO MORE BLEEDING TODAY. H/H STABLE. HD STABLE. SEEN BY GI, OUTPT FOLLOW UP. OK FOR DISCHARGE HOME. STABLE. Attending/Attestation - Attestation I have personally seen and examined this patient.: Yes I have fully participated in the care of the patient.: Yes I have reviewed all pertinent clinical information, including history, physical exam and plan: Yes Notes (Text): 01/13/17 19:04 AGREE WITH FINDINGS AND PLAN ABOVE. SEEN WITH RESIDENT DR. HANNAH GARCIA. REVIEWED PLAN TOGETHER, PATENT SEEN AND EXAMINED.
== END 2017-01-13 17:45 | disposition home or self-care (01) ==
LOC: H.ER 16:27 → H.EROBSV 17:28 → H.ERHOLD 22:12 → H.MEDSURG1 23:21
PROVIDERS: ADMIT Internal Medicine; ATTEND Internal Medicine
DX: K92.2 Gastrointestinal hemorrhage, unspecified (principal); E86.0 Dehydration; K29.50 Unspecified chronic gastritis without bleeding; F41.9 Anxiety disorder, unspecified; K64.9 Unspecified hemorrhoids